=== PATIENT | female | born 1975 | race African-American/Black ===

== ENCOUNTER 2016-09-21 09:30 | Emergency (ER) | payer BC ==
--- NOTE | 2016-09-21 11:58 | ER Document Report ---
ED Neck/Back Problem - General Chief Complaint: Back Pain Stated Complaint: BACK PAIN Mode of Arrival: Ambulatory Information source: Patient Notes: 41-year-old female presents to the emergency department complaining of lower back pain. Patient reports does repetitive bending and twisting motions at work and cannot recall obvious injury however states while she was getting out of her car today felt a pulling sharp pain to mid lower back. Reports pain is worse with lateral movement and bending of trunk. Denies extremity weakness/ numbness/tingling, saddle numbness, incontinence, urinary retention, fever, dysuria or hematuria. TRAVEL OUTSIDE OF THE [place] IN LAST 30 DAYS: No - HPI Patient complains to provider of: Lower back Onset: This morning Onset: Gradual Quality of pain: Achy, Sharp Severity: Moderate Pain Level: 3 Context: Turning Recent injury: No Associated symptoms: Like prior neck/back pain, Lower back pain. denies: Abdominal pain, Chills, Constipation, Fever, Incontinence, Motor loss, Numbness/ tingling, Radiation to arm, Radiation to chest, Radiation to leg, Sensory loss, Sweaty, Unable to urinate Exacerbated by: Movement of trunk Relieved by: Upright position Similar symptoms previously: Yes Recently seen / treated by doctor: No - Related Data Allergies/Adverse Reactions: amoxicillin trihydrate [From Augmentin] Allergy (Verified 09/21/16 09:36) esomeprazole magnesium [From Nexium] Allergy (Verified 09/21/16 09:36) hydrocodone bitartrate [From Vicodin] Allergy (Verified 09/21/16 09:36) omeprazole [Omeprazole] Allergy (Verified 09/21/16 09:36) Potassium Clavulanate * [From Augmentin] Allergy (Verified 09/21/16 09:36) Past Medical History - General Information source: Patient - Social History Smoking Status: Never Smoker Chew tobacco use (# tins/day): No Frequency of alcohol use: Social Drug Abuse: None Lives with: Family Family History: Arthritis, CVA, DM, Hyperlipidemia, Hypertension, Malignancy, Thyroid Disfunction Patient has suicidal ideation: No Patient has homicidal ideation: No Pulmonary Medical History: Reports: Hx Bronchitis, Hx Pneumonia Endocrine Medical History: Reports: Hx Diabetes Mellitus Type 2 - boderline, Hx Hypothyroidism Renal/ Medical History: Reports: Hx Ovarian Cysts. Denies: Hx Peritoneal Dialysis GI Medical History: Reports: Hx Gastroesophageal Reflux Disease, Hx Endoscopy Musculoskeltal Medical History: Reports Hx Arthritis, Reports Hx Musculoskeletal Deformity, Reports Hx Musculoskeletal Trauma Psychiatric Medical History: Reports: Hx Depression, Hx Post Traumatic Stress Disorder Denies: Hx Attention Deficit Hyperactivity Disorder, Hx Bipolar Disorder, Hx Schizophrenia Past Surgical History: Reports: Hx Gynecologic Surgery - Laparoscopy for ovarian cysts, Hx Orthopedic Surgery - l knee arthroscopy, Hx Thyroid Surgery - Thyroidectomy 2004, Hx Tonsillectomy - 2009. Denies: Hx Abdominal Surgery, Hx Appendectomy, Hx Bowel Surgery, Hx Breast Surgery, Hx Cardiac Catheterization, Hx Cardiac Surgery, Hx Section, Hx Cholecystectomy, Hx Genitourinary Surgery, Hx Hysterectomy, Hx Kidney (Renal Surgery), Hx Mastectomy, Hx Neurologic Surgery, Hx Nose Surgery, Hx Open Heart Surgery, Hx Oral Surgery, Hx Pancreatic Surgery, Hx Pituitary Surgery, Hx Rectal Surgery, Hx Tubal Ligation, Hx Urinary Tract Surgery, Hx Vascular Surgery - Immunizations Immunizations up to date: Yes Hx Diphtheria, Pertussis, Tetanus Vaccination: Yes Review of Systems - Review of Systems Constitutional: No symptoms reported EENT: No symptoms reported Cardiovascular: No symptoms reported Respiratory: No symptoms reported Gastrointestinal: No symptoms reported Genitourinary: No symptoms reported Female Genitourinary: No symptoms reported Musculoskeletal: See HPI Skin: No symptoms reported Hematologic/Lymphatic: No symptoms reported Neurological/Psychological: No symptoms reported -: Yes All other systems reviewed and negative Physical Exam - Vital signs Vitals: Temp Pulse Resp BP Pulse Ox 98.3 F 66 21 H 135/85 H 99 09/21/16 09:34 09/21/16 09:34 09/21/16 09:34 09/21/16 09:34 09/21/16 09:34 Interpretation: Normal - General General appearance: Appears well, Alert In distress: None - HEENT Head: Normocephalic, Atraumatic Eyes: Normal Pupils: PERRL - Respiratory Respiratory status: No respiratory distress Chest status: Nontender Breath sounds: Normal Chest palpation: Normal - Cardiovascular Rhythm: Regular Heart sounds: Normal auscultation Murmur: No Pulses: Normal: Radial Normal capillary refill: Yes - Abdominal Inspection: Normal Distension: No distension Bowel sounds: Normal Tenderness: Nontender Organomegaly: No organomegaly - Back Back: Tender - Mild tenderness to palpation to bilateral paraspinal musculature L>R at lumbar level. Full range of motion without paresthesias or neurological deficits.. No: Normal, Nontender, Deformity/step-off, CVA tenderness, Vertebra tenderness, Scars, Scoliosis, Wounds, Other - Extremities General upper extremity: Normal inspection, Nontender, Normal color, Normal ROM , Normal strength, Normal temperature. No: Tender, Edema General lower extremity: Normal inspection, Nontender, Normal color, Normal ROM , Normal strength, Normal temperature, Normal weight bearing. No: Tender, Edema - Neurological Neuro grossly intact: Yes Cognition: Normal Orientation: AAOx4 Angie Coma Scale Eye Opening: Spontaneous [place] Coma Scale Verbal: Oriented [place] Coma Scale Motor: Obeys Commands [place] Coma Scale Total: 15 Speech: Normal Motor strength normal: LUE, RUE, LLE, RLE Sensory: Normal - Psychological Associated symptoms: Normal affect, Normal mood - Skin Skin Temperature: Warm Skin Moisture: Dry Skin Color: Normal Course - Re-evaluation Re-evalutation: 09/21/16 11:56 Patient hemodynamically stable, in no distress, afebrile.The patient presents with back pain without signs of spinal cord compression, cauda equina syndrome, infection, aneurysm, or other serious etiology. The patient is neurologically intact, independently and steadily ambulatory without paresthesias or neurological deficits. Given the extremely low risk of these diagnoses further testing and evaluation for these possibilities does not appear to be indicated at this time. Patient appears stable for discharge and agrees with home care, follow-up with PCP, ED return precautions. - Vital Signs Vital signs: Temp Pulse Resp BP Pulse Ox 98.3 F 80 16 130/78 H 99 09/21/16 09:34 09/21/16 12:04 09/21/16 12:04 09/21/16 12:04 09/21/16 12:04 Discharge - Discharge Clinical Impression: Low back pain Qualifiers: Chronicity: acute Back pain laterality: bilateral Sciatica presence: without sciatica Qualified Code(s): M54.5 - Low back pain Condition: Stable Disposition: HOME, SELF-CARE Additional Instructions: LOW BACK PAIN: Three out of every four people will have an episode of disabling back pain during their lifetime. Most commonly the pain is due to straining of the muscles and ligaments in the low back. Usual treatment includes: (1) Rest on a firm surface. Avoid lying on your stomach. (2) Ice pack the painful area. After a few days, gentle heat may be used intermittently to relax the area, or ice packs can be continued. (3) Medication may be needed -- muscle relaxers and antiinflammatory medicines are commonly used. (4) As the back improves, exercises are prescribed to strengthen the back and abdominal muscles. Your doctor will advise you on the proper care for your back at each stage in your recovery. You may be better in a few days -- or healing may take several weeks. If new symptoms of a "herniated disc" (radiation of pain, numbness, or tingling down the back of the leg or weakness in the leg) occur, you should be re-examined. Further testing may be necessary. Anti-Inflammatory Medication You have received a prescription for an antiinflammatory agent. This is an excellent, safe drug for pain control. In addition, it has potent antiinflammatory effects which are beneficial, especially in the treatment of injuries, arthritis, or tendonitis. It's best to take this medicine with food. Persons with ulcer disease or allergy to aspirin should notify their physician of this before taking this drug. Take the medication exactly as prescribed. Don't take additional doses unless instructed to do so by your doctor. If you develop wheezing, shortness of breath, hives, faintness, stomach pain, vomiting, or dark black stools, return for re-evaluation at once. MUSCLE RELAXERS: Muscle relaxing medications are usually prescribed for acute muscle spasm or injury to the neck and back. They are often combined with antiinflammatory pain medication for increased relief. You may stop the muscle relaxer when the pain and stiffness have improved. Start the medication again if spasms recur. Muscle relaxers may cause drowsiness, especially with the first dose. Do not operate machinery or drive while under the effects of the medication. Most muscle relaxers last up to 24 hours. Do not combine the medication with alcohol. ICE PACKS: Apply ice packs frequently against the painful area. Many different schedules are recommended, such as "20 minutes on, 20 minutes off" or "one hour ice, two hours rest." If you need to work, you may need to go longer between ice treatments. You should plan to have the area ice packed AT LEAST one fourth of the time. The ice should be applied over the wrap, tape, or splint, or over a layer of cloth -- not directly against the skin. Some ice bags have a built-in cloth and can be put directly on the skin. WARM PACKS: After approximately two days, apply gentle heat (such as a heating pad or hot water bottle) for about 20 to 30 minutes about every two hours -- at least four times daily. Warmth and elevation will help you make a more rapid recovery , and will ease the pain considerably. Do not use HOT heat, and never apply heat for longer than 30 minutes. The continuous heat can invisibly damage skin and muscles -- even when no burn is seen on the surface. Damaged muscles can make you MORE sore. FOLLOW-UP CARE: Follow-up with your primary care provider in 1-2 days. Return to the emergency department for any worsening symptoms or concerns. Prescriptions: Methocarbamol [Robaxin 500 mg Tablet] 500 mg PO Q8HP PRN #10 tablet PRN Reason: Naproxen [Naprosyn 375 Mg Tablet] 375 mg PO BIDP PRN #10 tablet PRN Reason: Forms: Elevated Blood Pressure, Return to Work
[2016-09-21 12:05] VITALS: BP 130/78
== END 2016-09-21 12:04 | disposition home or self-care (01) ==
LOC: ER 09:30
DX: M54.5 Low back pain (principal); M54.9 Dorsalgia, unspecified
CPT/HCPCS: 99283

== ENCOUNTER 2016-11-16 09:49 | Emergency (ER) | payer BC ==
[2016-11-16] MEDS ORDERED: IBUPROFEN 800 MG TABLET PO ONE (10:46)
--- NOTE | 2016-11-16 10:52 | ER Document Report ---
ED Headache - General Chief Complaint: Headache Stated Complaint: HEADACHE Time seen by provider: 10:47 Mode of Arrival: Ambulatory Information source: Patient Notes: 41-year-old female presents to ED for headache. She states she of headache started on Saturday it would come and go then yesterday it became constant and has been constant since. She states her sister brought her something over for her migraine yesterday which helped her to go to sleep and go through the night but this morning she woke up with a headache again. She is having nausea but no vomiting with this headache. Has a history of migraines but has never gone to her doctor and got in treatment for them. TRAVEL OUTSIDE OF THE [place] IN LAST 30 DAYS: No - HPI Patient complains to provider of: Headache Patient reports: Hx chronic headaches Onset: Yesterday Timing: Better Quality of pain: Achy, Dull Severity: Moderate Pain Level: 4 Associated symptoms: Other - nausea Exacerbated by: Light, Noise Similar symptoms previously: Yes Recently seen / treated by doctor: No - Related Data Allergies/Adverse Reactions: amoxicillin trihydrate [From Augmentin] Allergy (Verified 11/16/16 09:52) esomeprazole magnesium [From Nexium] Allergy (Verified 11/16/16 09:52) hydrocodone bitartrate [From Vicodin] Allergy (Verified 11/16/16 09:52) omeprazole [Omeprazole] Allergy (Verified 11/16/16 09:52) Potassium Clavulanate * [From Augmentin] Allergy (Verified 11/16/16 09:52) Past Medical History - General Information source: Patient - Social History Smoking Status: Never Smoker Chew tobacco use (# tins/day): No Frequency of alcohol use: None Drug Abuse: None Family History: Arthritis, CVA, DM, Hyperlipidemia, Hypertension, Malignancy, Thyroid Disfunction Patient has suicidal ideation: No Patient has homicidal ideation: No Pulmonary Medical History: Reports: Hx Bronchitis, Hx Pneumonia Endocrine Medical History: Reports: Hx Diabetes Mellitus Type 2 - boderline, Hx Hypothyroidism Renal/ Medical History: Reports: Hx Ovarian Cysts. Denies: Hx Peritoneal Dialysis GI Medical History: Reports: Hx Gastroesophageal Reflux Disease, Hx Endoscopy Musculoskeltal Medical History: Reports Hx Arthritis, Reports Hx Musculoskeletal Deformity, Reports Hx Musculoskeletal Trauma Psychiatric Medical History: Reports: Hx Depression, Hx Post Traumatic Stress Disorder Denies: Hx Attention Deficit Hyperactivity Disorder, Hx Bipolar Disorder, Hx Schizophrenia Past Surgical History: Reports: Hx Gynecologic Surgery - Laparoscopy for ovarian cysts, Hx Orthopedic Surgery - l knee arthroscopy, Hx Thyroid Surgery - Thyroidectomy 2004, Hx Tonsillectomy - 2009. Denies: Hx Abdominal Surgery, Hx Appendectomy, Hx Bowel Surgery, Hx Breast Surgery, Hx Cardiac Catheterization, Hx Cardiac Surgery, Hx Section, Hx Cholecystectomy, Hx Genitourinary Surgery, Hx Hysterectomy, Hx Kidney (Renal Surgery), Hx Mastectomy, Hx Neurologic Surgery, Hx Nose Surgery, Hx Open Heart Surgery, Hx Oral Surgery, Hx Pancreatic Surgery, Hx Pituitary Surgery, Hx Rectal Surgery, Hx Tubal Ligation, Hx Urinary Tract Surgery, Hx Vascular Surgery - Immunizations Immunizations up to date: Yes Hx Diphtheria, Pertussis, Tetanus Vaccination: Yes Review of Systems - Review of Systems Constitutional: No symptoms reported EENT: No symptoms reported Cardiovascular: No symptoms reported Respiratory: No symptoms reported Gastrointestinal: Nausea Genitourinary: No symptoms reported Female Genitourinary: No symptoms reported Musculoskeletal: No symptoms reported Skin: No symptoms reported Hematologic/Lymphatic: No symptoms reported Neurological/Psychological: Headaches Physical Exam - Vital signs Vitals: Temp Pulse Resp BP Pulse Ox 98.7 F 53 L 18 117/89 H 97 11/16/16 09:53 11/16/16 09:53 11/16/16 09:53 11/16/16 09:53 11/16/16 09:53 Interpretation: Normal Notes: Temperature 98.7 pulse 53 respirations 18 regular unlabored. O2 sats 97% and blood pressure is 117/89 - General General appearance: Appears well, Alert - HEENT Head: Normocephalic, Atraumatic Eyes: Normal Pupils: PERRL - Respiratory Respiratory status: No respiratory distress Chest status: Nontender Breath sounds: Normal Chest palpation: Normal - Cardiovascular Rhythm: Regular Heart sounds: Normal auscultation Murmur: No - Abdominal Inspection: Normal Distension: No distension Bowel sounds: Normal Tenderness: Nontender Organomegaly: No organomegaly - Back Back: Normal, Nontender - Extremities General upper extremity: Normal inspection, Nontender, Normal color, Normal ROM , Normal temperature General lower extremity: Normal inspection, Nontender, Normal color, Normal ROM , Normal temperature, Normal weight bearing. No: Liudmila's sign - Neurological Neuro grossly intact: Yes Cognition: Normal Orientation: AAOx4 [place] Coma Scale Eye Opening: Spontaneous Angie Coma Scale Verbal: Oriented Angie Coma Scale Motor: Obeys Commands [place] Coma Scale Total: 15 Speech: Normal Cranial nerves: Normal Cerebellar coordination: Normal Motor strength normal: LUE, RUE, LLE, RLE Additional motor exam normals: Equal manager commercial Babinski reflex: Normal (flexor plantar) Sensory: Normal - Psychological Associated symptoms: Normal affect, Normal mood - Skin Skin Temperature: Warm Skin Moisture: Dry Skin Color: Normal Course - Re-evaluation Re-evalutation: 11/16/16 11:56 Patient states she did not have a ride home would prefer to get the ibuprofen here and get a prescription for Compazine and she'll take Benadryl at home. Prescription for Compazine written for patient ibuprofen given and patient discharged home. Patient encouraged to follow up with your [facility] provider and get a prescription for some migraine maintenance and when necessary medicine for breakthrough pain. - Vital Signs Vital signs: Temp Pulse Resp BP Pulse Ox 98.6 F 53 L 16 124/78 100 11/16/16 10:57 11/16/16 10:57 11/16/16 10:57 11/16/16 10:57 11/16/16 10:57 Discharge - Discharge Clinical Impression: Migraine headache Qualifiers: Migraine type: unspecified Status migrainosus presence: without status migrainosus Intractability: not intractable Qualified Code(s): G43.909 - Migraine, unspecified, not intractable, without status migrainosus Condition: Stable Disposition: HOME, SELF-CARE Additional Instructions: HEADACHE: The physician does not feel that the headache you are experiencing has a serious underlying cause. Most headaches are due to emotional stress, with resultant muscle tension (tension headache). Occasionally, headaches are secondary to changes in the blood vessels of the scalp (vascular headache and migraine headache). Sometimes, a headache is the first symptom of another developing illness, such as a viral infection. You have no evidence of stroke, bleeding, meningitis, or other serious cause of your headache. The treatment of headaches varies with the severity and cause of the pain. Not all headaches need pain shots. In fact, there is evidence that using narcotics for headaches may make them worse in the long run. The physician will determine the therapy that's in your best interest. If you develop a fever, if the headache is different from any you've previously experienced, or if the headache progressively worsens, then call your physician at once or go to the emergency room. USE OF DIPHENHYDRAMINE: Diphenhydramine (Benadryl) is an antihistamine and has been recommended to help treat your headache and to prevent side effects of other medications used to treat headaches. The medication can be repeated four times daily. Age Elixir (12.5 mg/tsp) 25 mg pill adult 1-2 tabs Antihistamines may cause drowsiness, especially with the first dose. Do not operate machinery or drive while under the effects of the medication. Do not combine the medication with alcohol, or with any other medication without talking to your doctor. COMPAZINE FOR HEADACHE: You have received therapy for headaches, using Compazine. This treatment is dramatically successful in relieving the headache in about 50 percent of cases. When it works, it provides a rapid method of eliminating the headache without resorting to narcotics (and the problems associated with them). Most patients still feel fully alert after the Compazine, but others may be slightly drowsy. It's best not to drive or work with machinery for six to eight hours. Do not take alcohol or other medication unless you discuss it with the doctor. If you develop tightness and spasms in your muscles, especially the neck and tongue, you should return. This is a side effect which can be treated. Ibuprofen Ibuprofen is an excellent, safe drug for pain control. In addition, it has potent antiinflammatory effects which are beneficial, especially in the treatment of injuries, arthritis, or tendonitis. It's best to take ibuprofen with food. Persons with ulcer disease or allergy to aspirin should notify their physician of this before taking ibuprofen. Take the medication exactly as prescribed. Don't take additional doses unless instructed to do so by your doctor. If you develop wheezing, shortness of breath, hives, faintness, stomach pain, vomiting, or dark black stools, return for re-evaluation at once. FOLLOW-UP CARE: If you have been referred to a physician for follow-up care, call the physician s office for an appointment as you were instructed or within the next two days. If you experience worsening or a significant change in your symptoms, notify the physician immediately or return to the Emergency Department at any time for re-evaluation. Please follow-up with your [facility] doctor and get treatment for your migraine headaches. There is treatments that you can take to prevent headaches and there is also treatments that she can take when you have. Please complete the patient's satisfaction survey if you get one and return. If you do not receive a survey you can go to [facility] [email or web address] and your comments about your very good care. Thank you very much. It was a pleasure be in your medical provider today. Prescriptions: Prochlorperazine Maleate [Compazine 10 mg Tablet] 10 mg PO Q6HP PRN #10 tablet PRN Reason: Forms: Return to Work
[2016-11-16 11:29] VITALS: BP 124/78
== END 2016-11-16 11:00 | disposition home or self-care (01) ==
LOC: ER 09:49
DX: G43.909 Migraine, unspecified, not intractable, without status migrainosus (principal); R11.0 Nausea; R73.03 Prediabetes; E03.9 Hypothyroidism, unspecified; K21.9 Gastro-esophageal reflux disease without esophagitis; Z88.3 Allergy status to other anti-infective agents
CPT/HCPCS: 99283

== ENCOUNTER 2016-11-17 16:01 | Emergency (ER) | payer BC ==
--- NOTE | 2016-11-17 18:22 | ER Document Report ---
ED Medical Screen (RME) - General Chief Complaint: Abdominal Pain Stated Complaint: STOMACH PAIN Notes: Patient says that she developed severe stomach pains while at work today. Patient says she started her menstrual cycle last night, but it was not unusual in any way. The pain at work was so severe that she was crying from the pain. She also was laying on the bathroom floor at work because of the pain. The pain was sharp and went around from the lower midline suprapubic region to the sides of her abdomen bilaterally. When the patient got here, she went to the bathroom and passed a large clot vaginally and ever since then, her pain is gone. Patient has had some nausea but not vomiting. No change in bowel habits or blood in her bowel movements. No UTI symptoms. No fevers. Surgery for right ovarian cyst and also surgery on the left for a possible cyst. At this time, patient looks very well. TRAVEL OUTSIDE OF THE [place] IN LAST 30 DAYS: No - Related Data Allergies/Adverse Reactions: amoxicillin trihydrate [From Augmentin] Allergy (Verified 11/17/16 16:45) esomeprazole magnesium [From Nexium] Allergy (Verified 11/17/16 16:45) hydrocodone bitartrate [From Vicodin] Allergy (Verified 11/17/16 16:45) omeprazole [Omeprazole] Allergy (Verified 11/17/16 16:45) Potassium Clavulanate * [From Augmentin] Allergy (Verified 11/17/16 16:45) Past Medical History Pulmonary Medical History: Reports: Hx Bronchitis, Hx Pneumonia Endocrine Medical History: Reports: Hx Diabetes Mellitus Type 2 - boderline, Hx Hypothyroidism Renal/ Medical History: Reports: Hx Ovarian Cysts. Denies: Hx Peritoneal Dialysis GI Medical History: Reports: Hx Gastroesophageal Reflux Disease, Hx Endoscopy Musculoskeltal Medical History: Reports Hx Arthritis, Reports Hx Musculoskeletal Deformity, Reports Hx Musculoskeletal Trauma Psychiatric Medical History: Reports: Hx Depression, Hx Post Traumatic Stress Disorder Denies: Hx Attention Deficit Hyperactivity Disorder, Hx Bipolar Disorder, Hx Schizophrenia Past Surgical History: Reports: Hx Gynecologic Surgery - Laparoscopy for ovarian cysts, Hx Orthopedic Surgery - l knee arthroscopy, Hx Thyroid Surgery - Thyroidectomy 2004, Hx Tonsillectomy - 2009. Denies: Hx Abdominal Surgery, Hx Appendectomy, Hx Bowel Surgery, Hx Breast Surgery, Hx Cardiac Catheterization, Hx Cardiac Surgery, Hx Section, Hx Cholecystectomy, Hx Genitourinary Surgery, Hx Hysterectomy, Hx Kidney (Renal Surgery), Hx Mastectomy, Hx Neurologic Surgery, Hx Nose Surgery, Hx Open Heart Surgery, Hx Oral Surgery, Hx Pancreatic Surgery, Hx Pituitary Surgery, Hx Rectal Surgery, Hx Tubal Ligation, Hx Urinary Tract Surgery, Hx Vascular Surgery - Immunizations Immunizations up to date: Yes Hx Diphtheria, Pertussis, Tetanus Vaccination: Yes Physical Exam - Vital signs Vitals: Temp Pulse Resp BP Pulse Ox 98.6 F 57 L 16 122/91 H 99 11/17/16 16:47 11/17/16 16:47 11/17/16 16:47 11/17/16 16:47 11/17/16 16:47 Course - Vital Signs Vital signs: Temp Pulse Resp BP Pulse Ox 98.6 F 57 L 16 122/91 H 99 11/17/16 16:47 11/17/16 16:47 11/17/16 16:47 11/17/16 16:47 11/17/16 16:47
[2016-11-17 18:52] LABS: ABSOLUTE LYMPHOCYTES (AUTO) 1.2 10^3/uL (0.5-4.7); ABSOLUTE MONOCYTES (AUTO) 0.4 10^3/uL (0.1-1.4); ABSOLUTE NEUT (AUTO) 4.8 10^3/uL (1.7-8.2); APPEARANCE,URINE SLIGHTLY-CLOUDY; BASOPHILS % (AUTO) 0.6 % (0-2); BILIRUBIN,URINE NEGATIVE (NEGATIVE); EOSINOPHILS % (AUTO) 0.2 % (0-6); GLUCOSE, URINE NEGATIVE (NEGATIVE); HEMOGLOBIN 12.1 g/dL (12.0-15.5); HGB HCT DIFFERENCE -1.7; KETONES,URINE NEGATIVE (NEGATIVE); LEUKOCYTE ESTERASE,URINE TRACE (NEGATIVE); LYMPHOCYTES % (AUTO) 18.8 % (13-45); MEAN CORPUSCULAR HEMOGLOBIN 25.1 pg (27.0-33.4); MEAN CORPUSCULAR HGB CONC 31.9 g/dL (32.0-36.0); MEAN CORPUSCULAR VOLUME 79 fl (80-97); MONOCYTES % (AUTO) 6.3 % (3-13); NITRITE,URINE NEGATIVE (NEGATIVE); PROTEIN,URINE 100 mg/dL (NEGATIVE); RED BLOOD COUNT 4.83 10^6/uL (3.72-5.28); SEGMENTED NEUTROPHILS % (AUTO) 74.1 % (42-78); URINE SPECIFIC GRAVITY 1.024; UROBILINOGEN,URINE NEGATIVE mg/dL (<2.0); WHITE BLOOD COUNT 6.5 10^3/uL (4.0-10.5)
[2016-11-17 19:10] LABS: ALANINE AMINOTRANSFERASE 22 U/L (9-52); ALBUMIN 4.2 g/dL (3.5-5.0); ALKALINE PHOSPHATASE 77 U/L (38-126); ANION GAP 15 (5-19); ASPARTATE AMINO TRANSFERASE 18 U/L (14-36); BILIRUBIN,DIRECT 0.1 mg/dL (0.0-0.4); BILIRUBIN,TOTAL 0.3 mg/dL (0.2-1.3); BLOOD UREA NITROGEN 16 mg/dL (7-20); CALCIUM 9.5 mg/dL (8.4-10.2); CARBON DIOXIDE 22 mmol/L (22-30); CHLORIDE 105 mmol/L (98-107); CREATININE RESULT 0.81 mg/dL (0.52-1.25); GLUCOSE 123 mg/dL (75-110); LIPASE 72.5 U/L (23-300); POTASSIUM 4.4 mmol/L (3.6-5.0); SODIUM 142.1 mmol/L (137-145); TOTAL PROTEIN 7.4 g/dL (6.3-8.2)
--- NOTE | 2016-11-17 19:39 | ER Document Report ---
HPI - HPI Patient complains to provider of: pelvic pain Onset: This afternoon Onset/Duration: Sudden, Gone Quality of pain: Sharp Pain Level: Denies Context: Patient states that she started her period yesterday and then passed a large clot this afternoon. Prior to passing clots she had there a sharp lower pelvic pain. Patient states that after passing the clot her pain resolved. Patient complains of some nausea but denies any vomiting or diarrhea. Patient denies any concern about sexually transmitted infection. Associated Symptoms: Other Exacerbated by: Denies Relieved by: Denies Similar symptoms previously: No Recently seen / treated by doctor: No - ROS ROS below otherwise negative: Yes Systems Reviewed and Negative: Yes All other systems reviewed and negative - CONSTITUTIONAL Constitutional: DENIES: Fever - NEURO Neurology: DENIES: Headache, Weakness - GASTROINTESTINAL Gastrointestinal: REPORTS: Abdominal Pain. 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 Denies: Hx Peritoneal Dialysis GI Medical History: Reports: Hx Gastroesophageal Reflux Disease, Hx Endoscopy Musculoskeltal Medical History: Reports Hx Arthritis, Reports Hx Musculoskeletal Deformity, Reports Hx Musculoskeletal Trauma Psychiatric Medical History: Reports: Hx Depression, Hx Post Traumatic Stress Disorder Denies: Hx Attention Deficit Hyperactivity Disorder, Hx Bipolar Disorder, Hx Schizophrenia Past Surgical History: Reports: Hx Gynecologic Surgery - Laparoscopy for ovarian cysts, Hx Orthopedic Surgery - l knee arthroscopy, Hx Thyroid Surgery - Thyroidectomy 2004, Hx Tonsillectomy - 2009 - Immunizations Immunizations up to date: Yes Hx Diphtheria, Pertussis, Tetanus Vaccination: Yes Vertical Provider Document - CONSTITUTIONAL Agree With Documented VS: Yes Exam Limitations: No Limitations General Appearance: WD/WN, No Apparent Distress - INFECTION CONTROL TRAVEL OUTSIDE OF THE [place] IN LAST 30 DAYS: No - HEENT HEENT: Atraumatic, Normocephalic - NECK Neck: Normal Inspection, Supple - RESPIRATORY Respiratory: Breath Sounds Normal, No Respiratory Distress, Chest Non-Tender O2 Sat by Pulse Oximetry: 99 - CARDIOVASCULAR Cardiovascular: Regular Rate, Regular Rhythm, No Murmur - GI/ABDOMEN Gastrointestinal: Abdomen Soft, Abdomen Non-Tender, No Organomegaly - BACK Back: Normal Inspection. negative: CVA Tenderness-Right, CVA Tenderness-Left - MUSCULOSKELETAL/EXTREMETIES Musculoskeletal/Extremeties: MAEW, FROM, Non-Tender - NEURO Level of Consciousness: Awake, Alert, Appropriate Motor/Sensory: No Motor Deficit - DERM Integumentary: Warm, Dry, No Rash Course - Re-evaluation Re-evalutation: 11/17/16 19:37 Offered pelvic examination with STD testing, patient declined stating she just had this test performed last week and has no concerns about STI 11/17/16 19:38 Patient states that she only came she went to make sure that she wasn't . - Vital Signs Vital signs: Temp Pulse Resp BP Pulse Ox 98.6 F 57 L 16 122/91 H 99 11/17/16 16:47 11/17/16 16:47 11/17/16 16:47 11/17/16 16:47 11/17/16 16:47 - Laboratory Result Diagrams: 11/17/16 18:24 11/17/16 18:24 Laboratory results interpreted by me: 11/17/16 11/17/16 11/17/16 18:24 18:24 18:24 MCV 79 L MCH 25.1 L MCHC 31.9 L RDW 16.0 H Glucose 123 H Urine Protein 100 H Urine Blood LARGE H Ur Leukocyte Esterase TRACE H 11/17/16 19:38 Labs- Entire Visit 11/17/16 11/17/16 11/17/16 18:24 18:24 18:24 WBC 6.5 RBC 4.83 Hgb 12.1 Hct 38.0 MCV 79 L MCH 25.1 L MCHC 31.9 L RDW 16.0 H Plt Count 240 Seg Neutrophils % 74.1 Lymphocytes % 18.8 Monocytes % 6.3 Eosinophils % 0.2 Basophils % 0.6 Absolute Neutrophils 4.8 Absolute Lymphocytes 1.2 Absolute Monocytes 0.4 Absolute Eosinophils 0.0 Absolute Basophils 0.0 Sodium 142.1 Potassium 4.4 Chloride 105 Carbon Dioxide 22 Anion Gap 15 BUN 16 Creatinine 0.81 Est GFR ( Amer) > 60 Est GFR (Non-Af Amer) > 60 Glucose 123 H Calcium 9.5 Total Bilirubin 0.3 Direct Bilirubin 0.1 Indirect Bilirubin Not Reportable Neonat Total Bilirubin Not Reportable AST 18 ALT 22 Alkaline Phosphatase 77 Total Protein 7.4 Albumin 4.2 Lipase 72.5 Serum HCG, Qual NEGATIVE Urine Color Urine Appearance Urine pH Ur Specific [place] Urine Protein Urine Glucose (UA) Urine Ketones Urine Blood Urine Nitrite Urine Bilirubin Urine Urobilinogen Ur Leukocyte Esterase Urine WBC (Auto) Urine RBC (Auto) Squamous Epi Cells Auto Urine Mucus (Auto) Urine Ascorbic Acid 11/17/16 18:24 WBC RBC Hgb Hct MCV MCH MCHC RDW Plt Count Seg Neutrophils % Lymphocytes % Monocytes % Eosinophils % Basophils % Absolute Neutrophils Absolute Lymphocytes Absolute Monocytes Absolute Eosinophils Absolute Basophils Sodium Potassium Chloride Carbon Dioxide Anion Gap BUN Creatinine Est GFR ( Amer) Est GFR (Non-Af Amer) Glucose Calcium Total Bilirubin Direct Bilirubin Indirect Bilirubin Neonat Total Bilirubin AST ALT Alkaline Phosphatase Total Protein Albumin Lipase Serum HCG, Qual Urine Color YELLOW Urine Appearance SLIGHTLY-CLOUDY Urine pH 6.0 Ur Specific [place] 1.024 Urine Protein 100 H Urine Glucose (UA) NEGATIVE Urine Ketones NEGATIVE Urine Blood LARGE H Urine Nitrite NEGATIVE Urine Bilirubin NEGATIVE Urine Urobilinogen NEGATIVE Ur Leukocyte Esterase TRACE H Urine WBC (Auto) 12 Urine RBC (Auto) >182 Squamous Epi Cells Auto 1 Urine Mucus (Auto) RARE Urine Ascorbic Acid NEGATIVE Discharge - Discharge Clinical Impression: Dysmenorrhea Condition: Stable Disposition: HOME, SELF-CARE Instructions: Dysmenorrhea ([facility]), Anti-Inflammatory Medication ([facility]) Additional Instructions: Return immediately for any new or worsening symptoms Followup with your primary care provider, call tomorrow to make a followup appointment Follow-up with your foam caster for any continued problems Forms: Return to Work Referrals: [facility] [Provider Group] - Follow up as needed
[2016-11-17 20:36] VITALS: BP 121/81
== END 2016-11-17 20:14 | disposition home or self-care (01) ==
LOC: ER 16:01
DX: N94.6 Dysmenorrhea, unspecified (principal); R10.2 Pelvic and perineal pain
CPT/HCPCS: 36415; 80053; 81001; 83690; 84703; 85025; 99284

== ENCOUNTER 2017-02-05 19:24 | Emergency (ER) | payer BC ==
[2017-02-05 20:15] VITALS: BP 117/85
[2017-02-05 21:58] LABS: APPEARANCE,URINE CLEAR; BILIRUBIN,URINE NEGATIVE (NEGATIVE); GLUCOSE, URINE NEGATIVE (NEGATIVE); KETONES,URINE NEGATIVE (NEGATIVE); LEUKOCYTE ESTERASE,URINE NEGATIVE (NEGATIVE); NITRITE,URINE NEGATIVE (NEGATIVE); PROTEIN,URINE NEGATIVE (NEGATIVE); URINE SPECIFIC GRAVITY 1.021
--- NOTE | 2017-02-05 22:26 | ER Document Report ---
ED GI/ - General Mode of Arrival: Ambulatory Information source: Patient TRAVEL OUTSIDE OF THE [place] IN LAST 30 DAYS: No - General Chief Complaint: Urinary Frequency Stated Complaint: PAIN WHILE URINATING Notes: Patient is a 41-year-old female who presents to the emergency department today with complaints of "tingling in her vagina". Patient states she feels like she "has a UTI or a yeast infection". Patient states she has been diagnosed with UTIs in the past but had never had symptoms. Patient states she was diagnosed with herpes "years ago" but has never had an outbreak. Patient denies any dysuria, itch, or vaginal bleeding. (CORNELIA ZEPEDA) - Related Data Allergies/Adverse Reactions: amoxicillin trihydrate [From Augmentin] Allergy (Verified 02/05/17 20:13) esomeprazole magnesium [From Nexium] Allergy (Verified 02/05/17 20:13) hydrocodone bitartrate [From Vicodin] Allergy (Verified 02/05/17 20:13) omeprazole [Omeprazole] Allergy (Verified 02/05/17 20:13) Potassium Clavulanate * [From Augmentin] Allergy (Verified 02/05/17 20:13) Past Medical History - General Information source: Patient - Social History Smoking Status: Never Smoker Cigarette use (# per day): No Frequency of alcohol use: None Drug Abuse: None Lives with: Family Family History: Reviewed & Not Pertinent, Arthritis, CVA, DM, Hyperlipidemia, Hypertension, Malignancy, Thyroid Disfunction Patient has suicidal ideation: No Patient has homicidal ideation: No Pulmonary Medical History: Reports: Hx Bronchitis, Hx Pneumonia Endocrine Medical History: Reports: Hx Diabetes Mellitus Type 2 - boderline, Hx Hypothyroidism Renal/ Medical History: Reports: Hx Ovarian Cysts GI Medical History: Reports: Hx Gastroesophageal Reflux Disease, Hx Endoscopy Musculoskeltal Medical History: Reports Hx Arthritis, Reports Hx Musculoskeletal Deformity, Reports Hx Musculoskeletal Trauma Psychiatric Medical History: Reports: Hx Depression, Hx Post Traumatic Stress Disorder Past Surgical History: Reports: Hx Gynecologic Surgery - Laparoscopy for ovarian cysts, Hx Orthopedic Surgery - l knee arthroscopy, Hx Thyroid Surgery - Thyroidectomy 2004, Hx Tonsillectomy - 2009 - Immunizations Immunizations up to date: Yes Hx Diphtheria, Pertussis, Tetanus Vaccination: Yes Review of Systems - Review of Systems Constitutional: No symptoms reported EENT: No symptoms reported Cardiovascular: No symptoms reported Respiratory: No symptoms reported Gastrointestinal: No symptoms reported Genitourinary: Other - vaginal tingling. denies: Dysuria Female Genitourinary: denies: Vaginal bleeding Musculoskeletal: No symptoms reported Skin: No symptoms reported Hematologic/Lymphatic: No symptoms reported Neurological/Psychological: No symptoms reported -: Yes All other systems reviewed and negative Physical Exam - Vital signs Vitals: Temp Pulse BP Pulse Ox 98.5 F 79 117/85 99 02/05/17 20:13 02/05/17 20:13 02/05/17 20:13 02/05/17 20:13 - Notes Notes: Physical Exam: General: Alert, appears well. HEENT: Normocephalic. Atraumatic. PERRL. Extraocular movements intact. Oropharynx clear. Neck: Supple. Non-tender. Respiratory: No respiratory distress. Clear and equal breath sounds bilaterally. Cardiovascular: Regular rate and rhythm. Abdominal: Normal Inspection. Non-tender. No distension. Normal Bowel Sounds. Female Genitourinary: No lesions. Back: Non-tender. No deformity or step off. Extremities: Moves all four extremities. Upper extremities: Normal inspection. Normal ROM. Lower extremities: Normal inspection. No edema. Normal ROM. Neurological: Normal cognition. AAOx4. Normal speech. Psychological: Normal affect. Normal Mood. Skin: Warm. Dry. Normal color. (CORNELIA ZEPEDA) Course - Re-evaluation Re-evalutation: Patient with no findings on vaginal exam. Stable for discharge. Follow-up with FISH FLIPPER as needed. Urine within normal limits. Stable for discharge. ( DEX MURPHY) - Vital Signs Vital signs: Temp Pulse Resp BP Pulse Ox 98.5 F 79 117/85 99 02/05/17 20:13 02/05/17 20:13 02/05/17 20:13 02/05/17 20:13 - Laboratory Laboratory results interpreted by me: 02/05/17 20:30 Urine Urobilinogen 4.0 H Discharge - Discharge Clinical Impression: Normal vaginal exam Condition: Stable Disposition: HOME, SELF-CARE Additional Instructions: Please follow-up with your FISH FLIPPER as needed. [place]qu[place] Attestation: 02/06/17 00:24 I personally performed the services described in the documentation, reviewed and edited the documentation which was dictated to the scribe in my presence, and it accurately records my words and actions. (DEX MURPHY) Scribe Documentation - Scribe Written by Tiffany:: Tiffany Jama, 02/05/2017 2322 acting as scribe for :: Jenni
== END 2017-02-05 22:55 | disposition home or self-care (01) ==
LOC: ER 19:24
DX: Z71.1 Person with feared health complaint in whom no diagnosis is made (principal); R35.0 Frequency of micturition; R30.0 Dysuria; Z87.440 Personal history of urinary (tract) infections; Z88.0 Allergy status to penicillin; Z88.6 Allergy status to analgesic agent; R73.03 Prediabetes
CPT/HCPCS: 81001; 81025; 99283

== ENCOUNTER 2017-08-26 16:07 | Emergency (ER) | payer BC, OTHER ==
[2017-08-26] MEDS ORDERED: KETOROLAC TROMETHAMINE INJ/PF 30 MG/1 ML SDV IM ONE (17:58)
--- NOTE | 2017-08-26 18:04 | ER Document Report ---
HPI - HPI Pain Level: 5 Notes: Patient is a 42-year-old female with a history of chronic bilateral knee pain who presents to the ED complaining of nasal congestion/discharge, sinus pressure , postnasal drip 2-1/2 weeks. Patient states that she did develop a dry nonproductive cough over the last few days. Patient states that she has had sinus infections in the past before and needed an antibiotic. Otherwise patient is eating and drinking without any difficulties. She is urinating normally and having normal bowel movements. Patient states that she is allergic to Augmentin, but that only caused a yeast infection in the past. She has never had any rash or angioedema associated with the Augmentin/penicillin family. Patient states that she does continue to have chronic knee pain bilaterally with no acute changes. No other concerns or complaints at this time. Denies any recent injury. Denies any headache, fever, neck pain, sore throat, chest pain, palpitations, syncope, shortness of breath, wheeze, dyspnea , abdominal pain, nausea/vomiting/diarrhea, urinary retention, dysuria, hematuria, loss of control of bowel or bladder, numbness/tingling, saddle anesthesia, muscle paralysis/weakness, or rash. - ROS Systems Reviewed and Negative: Yes All other systems reviewed and negative - REPRODUCTIVE Reproductive: DENIES: : Past Medical History - Social History Smoking Status: Never Smoker Family History: Arthritis, Malignancy, CVA, DM, Hyperlipidemia, Hypertension, Reviewed & Not Pertinent, Thyroid Disfunction Pulmonary Medical History: Reports: Hx Bronchitis, Hx Pneumonia Endocrine Medical History: Reports: Hx Diabetes Mellitus Type 2 - boderline, Hx Hypothyroidism Renal/ Medical History: Reports: Hx Ovarian Cysts. Denies: Hx Peritoneal Dialysis GI Medical History: Reports: Hx Gastroesophageal Reflux Disease, Hx Endoscopy Musculoskeltal Medical History: Reports Hx Arthritis, Reports Hx Musculoskeletal Deformity, Reports Hx Musculoskeletal Trauma Psychiatric Medical History: Reports: Hx Depression, Hx Post Traumatic Stress Disorder Denies: Hx Attention Deficit Hyperactivity Disorder, Hx Bipolar Disorder, Hx Schizophrenia Past Surgical History: Reports: Hx Gynecologic Surgery - Laparoscopy for ovarian cysts, Hx Orthopedic Surgery, Hx Thyroid Surgery, Hx Tonsillectomy, Hx Tubal Ligation. Denies: Hx Abdominal Surgery, Hx Appendectomy, Hx Bowel Surgery , Hx Breast Surgery, Hx Cardiac Catheterization, Hx Cardiac Surgery, Hx Section, Hx Cholecystectomy, Hx Genitourinary Surgery, Hx Hysterectomy , Hx Kidney (Renal Surgery), Hx Mastectomy, Hx Neurologic Surgery, Hx Nose Surgery, Hx Open Heart Surgery, Hx Oral Surgery, Hx Pancreatic Surgery, Hx Pituitary Surgery, Hx Rectal Surgery, Hx Urinary Tract Surgery, Hx Vascular Surgery - Immunizations Immunizations up to date: Yes Hx Diphtheria, Pertussis, Tetanus Vaccination: Yes Vertical Provider Document - CONSTITUTIONAL Agree With Documented VS: Yes Notes: PHYSICAL EXAMINATION: GENERAL: Well-appearing, well-nourished and in no acute distress. A&Ox4 HEAD: Atraumatic, normocephalic. EYES: Pupils equal round and reactive to light, extraocular movements intact, sclera anicteric, conjunctiva are normal. ENT: EAC clear b/l. TM's intact b/l without erythema, fluid, or perforation. Nares patent and with yellow discharge. oropharynx mild erythema without exudates. 1+ tonsilar hypertrophy without erythema or exudate. No palatine shift. Uvula midline. No tongue protrusion. No drooling, hoarseness, or airway compromise. Moist mucous membranes. + sinus tenderness and + illumination test b/l maxillary. NECK: Normal range of motion, supple without lymphadenopathy. No rigidity/ meningismus. LUNGS: Breath sounds clear to auscultation bilaterally and equal. No wheezes rales or rhonchi. HEART: Regular rate and rhythm without murmurs, rubs, gallops. ABDOMEN: Soft, nontender, nondistended abdomen. No guarding, no rebound. No masses appreciated. Normal bowel sounds present. No CVA tenderness bilaterally. MS: FROM to knee b/l. Strength 5+/5. Non-tender. Trace pitting edema b/l. N/ V intact distal. Ligamentous stable. Chris neg b/l. NEUROLOGICAL: Normal speech, normal gait. Normal sensory, motor exams PSYCH: Normal mood, normal affect. SKIN: Warm, Dry, normal turgor, no rashes or lesions noted. - INFECTION CONTROL TRAVEL OUTSIDE OF THE [place] IN LAST 30 DAYS: No - RESPIRATORY O2 Sat by Pulse Oximetry: 98 Course - Re-evaluation Re-evalutation: 08/26/17 18:02 Patient is an afebrile, well-hydrated, 42-year-old female who presents to the ED with acute sinusitis and chronic bilateral knee pain, suspect arthritic changes. Vitals are stable. PE is otherwise unremarkable. No labs or imaging warranted at this time based on H&P. With the positive sinus tenderness, positive illumination test, and sinus symptoms for 2-1/2 weeks, I will cover her with Omnicef. I will also send her home with one Diflucan tablet as precautionary. Toradol given IM today for her knee pain. Recommend conservative measures for symptoms. Low suspicion for any meningitis, sepsis, peritonsillar/pharyngeal abscess, respiratory compromise, Christiano's, septic joint , fracture/dislocation, or other emergent systemic condition at this time. Patient is aware this condition can change from initial presentation and she needs to monitor symptoms closely. Conservative measures otherwise for symptoms. Recheck with your PCM in 3-5 days. Return to the ED with any worsening/concerning symptoms otherwise as reviewed in discharge. Patient is in agreement. - Vital Signs Vital signs: Temp Pulse Resp BP Pulse Ox 98.7 F 66 17 133/97 H 98 08/26/17 16:12 08/26/17 16:12 08/26/17 16:12 08/26/17 16:12 08/26/17 16:12 Discharge - Discharge Clinical Impression: Chronic pain of both knees Acute sinusitis Qualifiers: Sinusitis location: maxillary Recurrence: non-recurrent Qualified Code(s): J01.00 - Acute maxillary sinusitis, unspecified Condition: Stable Disposition: HOME, SELF-CARE Instructions: Sinusitis ([facility]) Additional Instructions: Maintain adequate fluid intake Take meds as directed tylenol/ibuprofen as needed over the counter cold medication as needed for symptoms Humidified air may help Rest, ice, compression, elevation F/u: with your PCM in 3-5 days for a recheck Consider consult with Orthopedics/Physical therapy Return to the ED with any fever, worsening pain, chest pain, palpitations, syncope, worsening ALVES, neck pain/stiffness, shortness of breath, wheezing, drooling, trouble swallowing/breathing, abdominal pain, n/v/d, rash, swelling- redness-warmth of knee joint, or worsening/concerning symptoms otherwise. Prescriptions: Cefdinir [Omnicef 300 mg Capsule] 1 cap PO BID #20 capsule Fluconazole [Diflucan] 150 mg PO ONCE PRN #1 tablet PRN Reason: Forms: Elevated Blood Pressure Referrals: [facility] [Provider Group] - Follow up as needed
[2017-08-26 18:44] VITALS: BP 154/99
== END 2017-08-26 18:44 | disposition home or self-care (01) ==
LOC: ER 16:07
DX: J01.00 Acute maxillary sinusitis, unspecified (principal); M25.561 Pain in right knee; M25.562 Pain in left knee; G89.29 Other chronic pain; R09.81 Nasal congestion; R09.89 Other specified symptoms and signs involving the circulatory and respiratory systems; R09.82 Postnasal drip; R05 Cough
CPT/HCPCS: 99283; 96372; J1885

== ENCOUNTER 2017-11-17 11:57 | Emergency (ER) | payer OTHER ==
--- NOTE | 2017-11-17 14:13 | ER Document Report ---
ED Respiratory Problem - General Chief Complaint: Knee Pain Stated Complaint: KNEE PAIN, HEADACHE Time Seen by Provider: 11/17/17 12:17 Mode of Arrival: Ambulatory Information source: Patient Notes: 42-year-old female presented to ED for complaint of body aches runny nose cough congestion headache with her chronic knee pain. She states there is no change in the knee pain. TRAVEL OUTSIDE OF THE [place] IN LAST 30 DAYS: No - HPI Patient complains to provider of: Cough, Other - Congestion runny nose she states she sometimes feels like she has a fever but has not taken her fever Onset: Other - Couple weeks off and on Duration: Intermittent episodes Initiating Event: URI Quality of pain: Achy Severity: Moderate Pain Level: 3 Context: Smoker Cough: Nonproductive Associated symptoms: Chills, Congestion, Cough, PND, Runny nose, Sinus pain/ pressure, Sore Throat. denies: Fever Similar symptoms previously: Yes Recently seen / treated by doctor: No - Related Data Allergies/Adverse Reactions: acetaminophen [From Vicodin] Allergy (Verified 08/26/17 16:10) amoxicillin [From Augmentin] Allergy (Verified 08/26/17 16:10) amoxicillin trihydrate [From Augmentin] Allergy (Verified 08/26/17 16:10) clavulanic acid [From Augmentin] Allergy (Verified 08/26/17 16:10) esomeprazole magnesium [From Nexium] Allergy (Verified 08/26/17 16:10) hydrocodone [From Vicodin] Allergy (Verified 08/26/17 16:10) hydrocodone bitartrate [From Vicodin] Allergy (Verified 08/26/17 16:10) omeprazole [Omeprazole] Allergy (Verified 08/26/17 16:10) Potassium Clavulanate * [From Augmentin] Allergy (Verified 08/26/17 16:10) Past Medical History - General Information source: Patient - Social History Smoking Status: Current Some Day Smoker Cigarette use (# per day): Yes Smoking Education Provided: Yes - 4 minutes Frequency of alcohol use: Occasional Drug Abuse: Marijuana Lives with: Family - Brother Family History: Arthritis, CVA, DM, Hyperlipidemia, Hypertension, Malignancy, Thyroid Disfunction. denies: CAD, COPD Patient has suicidal ideation: No Patient has homicidal ideation: No - Past Medical History Cardiac Medical History: Reports: None Pulmonary Medical History: Reports: Hx Bronchitis, Hx Pneumonia EENT Medical History: Reports: None Neurological Medical History: Reports: None Endocrine Medical History: Reports: Hx Diabetes Mellitus Type 2 - boderline, Hx Hypothyroidism Renal/ Medical History: Reports: Hx Ovarian Cysts Malignancy Medical History: Reports: None GI Medical History: Reports: Hx Gastroesophageal Reflux Disease, Hx Endoscopy Musculoskeltal Medical History: Reports Hx Arthritis, Reports Hx Musculoskeletal Deformity, Reports Hx Musculoskeletal Trauma Psychiatric Medical History: Reports: Hx Depression, Hx Post Traumatic Stress Disorder Traumatic Medical History: Reports: None Infectious Medical History: Reports: None Past Surgical History: Reports: Hx Gynecologic Surgery - Laparoscopy for ovarian cysts, Hx Orthopedic Surgery, Hx Thyroid Surgery, Hx Tonsillectomy - Immunizations Immunizations up to date: Yes Hx Diphtheria, Pertussis, Tetanus Vaccination: Yes Review of Systems - Review of Systems Constitutional: Chills, Recent illness EENT: Nose congestion, Nose discharge, Sinus pressure, Sinus discharge, Throat pain Cardiovascular: No symptoms reported Respiratory: Cough Gastrointestinal: No symptoms reported Genitourinary: No symptoms reported Female Genitourinary: No symptoms reported Musculoskeletal: No symptoms reported Skin: No symptoms reported Hematologic/Lymphatic: No symptoms reported Neurological/Psychological: No symptoms reported -: Yes All other systems reviewed and negative Physical Exam - Vital signs Vitals: Temp Pulse Resp BP Pulse Ox 98.1 F 72 19 127/89 H 100 11/17/17 12:02 11/17/17 12:02 11/17/17 12:02 11/17/17 12:02 11/17/17 12:02 Interpretation: Normal - General General appearance: Appears well, Alert - HEENT Head: Normocephalic, Atraumatic Eyes: Normal Pupils: PERRL Ears: Normal External canal: Normal Tympanic membrane: Normal Sinus: Normal Nasal: Purulent discharge, Swelling Mouth/Lips: Normal Mucous membranes: Normal Pharynx: Post nasal drainage Neck: Normal - Respiratory Respiratory status: No respiratory distress Chest status: Nontender Breath sounds: Nonproductive cough Chest palpation: Normal - Cardiovascular Rhythm: Regular Heart sounds: Normal auscultation Murmur: No - Abdominal Inspection: Normal Distension: No distension Bowel sounds: Normal Tenderness: Nontender Organomegaly: No organomegaly - Back Back: Normal, Nontender - Extremities General upper extremity: Normal inspection, Nontender, Normal color, Normal ROM , Normal temperature General lower extremity: Normal inspection, Nontender, Normal color, Normal ROM , Normal temperature, Normal weight bearing. No: Liudmila's sign - Neurological Neuro grossly intact: Yes Cognition: Normal Orientation: AAOx4 Angie Coma Scale Eye Opening: Spontaneous [place] Coma Scale Verbal: Oriented [place] Coma Scale Motor: Obeys Commands Angie Coma Scale Total: 15 Speech: Normal Motor strength normal: LUE, RUE, LLE, RLE Sensory: Normal - Psychological Associated symptoms: Normal affect, Normal mood - Skin Skin Temperature: Warm Skin Moisture: Dry Skin Color: Normal Course - Re-evaluation Re-evalutation: 11/17/17 15:43 Patient treated with Claritin 10 mg, Sudafed 30 mg, Mucinex 600 mg, and ibuprofen for her cough cold congestion. After performing a Medical Screening Examination, I estimate there is LOW risk for ACUTE CORONARY SYNDROME, RESPIRATORY FAILURE, SEPSIS OR MENINGITIS, thus I consider the discharge disposition reasonable. I have reevaluated this patient multiple times and no significant life threatening changes are noted. The patient and I have discussed the diagnosis and risks, and we agree with discharging home with close follow-up. We also discussed returning to the Emergency Department immediately if new or worsening symptoms occur. We have discussed the symptoms which are most concerning (e.g., changing or worsening pain, trouble swallowing or breathing, neck stiffness, fever) that necessitate immediate return. - Vital Signs Vital signs: Temp Pulse Resp BP Pulse Ox 98.7 F 63 16 119/85 99 11/17/17 14:42 11/17/17 14:42 11/17/17 14:42 11/17/17 14:42 11/17/17 14:42 Discharge - Discharge Clinical Impression: URI (upper respiratory infection) Qualifiers: URI type: unspecified URI Qualified Code(s): J06.9 - Acute upper respiratory infection, unspecified Condition: Stable Disposition: HOME, SELF-CARE Instructions: Family Physicians / Practices Additional Instructions: UPPER RESPIRATORY ILLNESS: You have a viral infection of the respiratory passages -- a "cold." This common infection causes nasal congestion, drainage, and often sore throat and cough. It is highly contagious. The disease usually lasts about 10 to 14 days. There is no "cure" for the viral infection -- it must run its course. If there is a complication, such as bacterial infection in the nose, sinuses, middle ear, or bronchial tubes, antibiotics may be required. The antibiotics won't affect the virus. Drink plenty of fluids. A humidifier may help. An expectorant medication or decongestant may make you more comfortable. Use acetaminophen or ibuprofen for fever or aches. See the doctor if fever persists over two days, if there is any significant worsening of your symptoms, or if you simply fail to improve as expected. DECONGESTANT MEDICATION: A decongestant medicine has been prescribed. Often this medicine is combined in the same tablet with an antihistamine or expectorant. This type of medicine is helpful in treating a bad cold or sinus condition, as well as in treatment of the nasal congestion of hay fever. It is not of much benefit for lung infections. Decongestant medicines are related to stimulants. They can cause an increase in blood pressure and heart rate. Persons with heart disease and high blood pressure should not take decongestants without discussing this with the physician. If you develop palpitations, chest pain, headache, or tremors, stop the medicine and consult your physician. COUGH-SUPPRESSANT & EXPECTORANT MEDICATION: You are to use a cough medication as needed for relief of symptoms. This medicine is a combination of an expectorant (to make the mucous thinner and more easily "coughed up") and a cough suppressant (to reduce the frequency of coughing). The cough-suppressant medicine is related to narcotics. You may experience mild nausea and sleepiness. Some patients who are very sensitive to narcotics may have stomach pain from this medicine. Taking the medicine with food reduces these side effects. Do not drive or work with machinery until you know how this medicine affects you. The expectorant should have no side effects. Iodine-containing expectorants (such as organidin) should not be taken by persons with active thyroid disease unless approved by your doctor. Call the doctor if you develop shortness of breath, hives, rash, itching, lightheadedness, or severe nausea and vomiting. You will treated with Claritin 10 mg, Sudafed 30 mg, Mucinex 600 mg, and ibuprofen in the emergency room for your cough and cold symptoms. These were all [id number] medications that she can buy [id number] have to ask the pharmacist for the Sudafed. Drink plenty of fluids. USE OF ACETAMINOPHEN (Tylenol): Acetaminophen may be taken for pain relief or fever control. It's much safer than aspirin, offering a wider range of "safe" dosages. It is safe during . Some brand names are Tylenol, Panadol, Datril, Anacin 3, Tempra, and Liquiprin. Acetaminophen can be repeated every four hours. The following are maximum recommended dosages: >89 pounds or adults 650 mg to 900 mg Acetaminophen can be repeated every four hours. Maximum dose not to exceed 4000 mg a day. FOLLOW-UP CARE: If you have been referred to a physician for follow-up care, call the physician s office for an appointment as you were instructed or within the next two days. If you experience worsening or a significant change in your symptoms, notify the physician immediately or return to the Emergency Department at any time for re-evaluation. Forms: Smoking Cessation Education, Parent Work Note, Return to Work
[2017-11-17] MEDS: GUAIFENESIN 600 MG TABLET.SA PO ONE (14:37)
[2017-11-17] MEDS: PSEUDOEPHEDRINE HCL 30 MG TABLET PO ONE (14:38)
[2017-11-17] MEDS: IBUPROFEN 600 MG TABLET PO ONE (14:38)
[2017-11-17] MEDS: LORATADINE 10 MG TABLET PO ONE (14:38)
[2017-11-17 14:46] VITALS: BP 119/85
== END 2017-11-17 14:40 | disposition home or self-care (01) ==
LOC: ER 11:57
DX: J06.9 Acute upper respiratory infection, unspecified (principal); R05 Cough; R51 Headache; G89.29 Other chronic pain; M25.569 Pain in unspecified knee; R09.82 Postnasal drip; J34.89 Other specified disorders of nose and nasal sinuses; R68.83 Chills (without fever); R09.81 Nasal congestion; J02.9 Acute pharyngitis, unspecified; F17.210 Nicotine dependence, cigarettes, uncomplicated; Z71.6 Tobacco abuse counseling; Z88.5 Allergy status to narcotic agent; Z88.0 Allergy status to penicillin; Z88.8 Allergy status to other drugs, medicaments and biological substances; Z87.01 Personal history of pneumonia (recurrent)
CPT/HCPCS: 99283; 99406

== ENCOUNTER 2017-12-14 20:39 | Emergency (ER) | payer SELFPAY ==
--- NOTE | 2017-12-14 22:04 | ER Document Report ---
ED General - General Chief Complaint: Medication Refill Stated Complaint: MED REFILL Time Seen by Provider: 12/14/17 21:55 Mode of Arrival: Ambulatory Information source: Patient TRAVEL OUTSIDE OF THE [place] IN LAST 30 DAYS: No - HPI Notes: Patient presents with report that she is been out of her Synthroid and Protonix for over a week related to a family emergency that brought her out of town and she was unable to see her regular practitioner. She reports slight diminished stamina and energy and slight increase in lower extremity edema, but she denies any chest pain shortness of breath or abdominal pain. She reports occasional reflux symptoms. She denies any fever or chills. - Related Data Allergies/Adverse Reactions: clavulanic acid [From Augmentin] Allergy (Verified 12/14/17 20:40) esomeprazole magnesium [From Nexium] Allergy (Verified 12/14/17 20:40) hydrocodone [From Vicodin] Allergy (Verified 12/14/17 20:40) hydrocodone bitartrate [From Vicodin] Allergy (Verified 12/14/17 20:40) omeprazole [Omeprazole] Allergy (Verified 12/14/17 20:40) Potassium Clavulanate * [From Augmentin] Allergy (Verified 12/14/17 20:40) Past Medical History - General Information source: Patient - Social History Smoking Status: Current Every Day Smoker Chew tobacco use (# tins/day): No Frequency of alcohol use: daily Drug Abuse: Marijuana Lives with: Family Family History: Arthritis, CVA, DM, Hyperlipidemia, Hypertension, Malignancy, Thyroid Disfunction. denies: CAD, COPD Patient has suicidal ideation: No Patient has homicidal ideation: No Pulmonary Medical History: Reports: Hx Bronchitis, Hx Pneumonia Endocrine Medical History: Reports: Hx Diabetes Mellitus Type 2 - boderline, Hx Hypothyroidism Renal/ Medical History: Reports: Hx Ovarian Cysts. Denies: Hx Peritoneal Dialysis GI Medical History: Reports: Hx Gastroesophageal Reflux Disease, Hx Endoscopy Musculoskeltal Medical History: Reports Hx Arthritis, Reports Hx Musculoskeletal Deformity, Reports Hx Musculoskeletal Trauma Psychiatric Medical History: Reports: Hx Depression, Hx Post Traumatic Stress Disorder Denies: Hx Attention Deficit Hyperactivity Disorder, Hx Bipolar Disorder, Hx Schizophrenia Past Surgical History: Reports: Hx Gynecologic Surgery - Laparoscopy for ovarian cysts, Hx Orthopedic Surgery - tiki knee scopes, Hx Thyroid Surgery - total removed, Hx Tonsillectomy, Hx Tubal Ligation. Denies: Hx Abdominal Surgery, Hx Appendectomy, Hx Bowel Surgery, Hx Breast Surgery, Hx Cardiac Catheterization, Hx Cardiac Surgery, Hx Section, Hx Cholecystectomy, Hx Genitourinary Surgery, Hx Hysterectomy, Hx Kidney (Renal Surgery), Hx Mastectomy, Hx Neurologic Surgery, Hx Nose Surgery, Hx Open Heart Surgery, Hx Oral Surgery, Hx Pancreatic Surgery, Hx Pituitary Surgery, Hx Rectal Surgery, Hx Urinary Tract Surgery, Hx Vascular Surgery - Immunizations Immunizations up to date: Yes Hx Diphtheria, Pertussis, Tetanus Vaccination: Yes Review of Systems - Review of Systems Notes: REVIEW OF SYSTEMS: CONSTITUTIONAL : Denies fever, chills, or sweats. Denies recent illness. EENT: Denies eye, ear, throat, or mouth pain or symptoms. Denies nasal or sinus congestion or discharge. Denies throat, tongue, or mouth swelling or difficulty swallowing. CARDIOVASCULAR: Denies chest pain. Denies palpitations or racing or irregular heart beat. RESPIRATORY: Denies cough, cold, or chest congestion. Denies shortness of breath, difficulty breathing, or wheezing. GASTROINTESTINAL: Denies abdominal pain or distention. Denies nausea, vomiting , or diarrhea. Denies blood in vomitus, stools, or per rectum. Denies black, tarry stools. Denies constipation. GENITOURINARY: Denies difficulty urinating, painful urination, burning, frequency, blood in urine, or discharge. FEMALE GENITOURINARY: Denies vaginal bleeding, heavy or abnormal periods, irregular periods. Denies vaginal discharge or odor. MUSCULOSKELETAL: Denies back or neck pain or stiffness. Denies joint pain or swelling. SKIN: Denies rash, lesions or sores. HEMATOLOGIC : Denies easy bruising or bleeding. LYMPHATIC: Denies swollen, enlarged glands. NEUROLOGICAL: Denies confusion or altered mental status. Denies passing out or loss of consciousness. Denies dizziness or lightheadedness. Denies headache. Denies weakness or paralysis or loss of use of either side. Denies problems with gait or speech. Denies sensory loss, numbness, or tingling. Denies seizures. PSYCHIATRIC: Denies anxiety or stress. Denies depression, suicidal ideation, or homicidal ideation. ALL OTHER SYSTEMS REVIEWED AND NEGATIVE. Dictation was performed using [employer] voice recognition software Physical Exam - Vital signs Vitals: Temp Pulse Resp BP Pulse Ox 97.9 F 54 L 16 140/96 H 97 12/14/17 20:45 12/14/17 20:45 12/14/17 20:45 12/14/17 20:45 12/14/17 20:45 - Notes Notes: PHYSICAL EXAMINATION: GENERAL: Well-appearing, well-nourished and in no acute distress. HEAD: Atraumatic, normocephalic. EYES: Pupils equal round and reactive to light, extraocular movements intact, conjunctiva are normal. ENT: Nares patent, oropharynx clear without exudates. Moist mucous membranes. NECK: Normal range of motion, supple without lymphadenopathy LUNGS: Breath sounds clear to auscultation bilaterally and equal. No wheezes rales or rhonchi. HEART: Regular rate and rhythm without murmurs ABDOMEN: Soft, nontender, nondistended abdomen. No guarding, no rebound. No masses appreciated. Obese. Female : deferred Musculoskeletal: Normal range of motion. No cyanosis. Trace bilateral lower extremity edema. NEUROLOGICAL: Cranial nerves grossly intact. Normal speech, normal gait. Normal sensory, motor exams PSYCH: Normal mood, normal affect. SKIN: Warm, Dry, normal turgor, no rashes or lesions noted. Course - Re-evaluation Re-evalutation: 12/14/17 22:04 Refills given of Synthroid and Protonix. Patient states she will follow-up with her regular practitioner as soon as possible. - Vital Signs Vital signs: Temp Pulse Resp BP Pulse Ox 97.9 F 54 L 16 140/96 H 97 12/14/17 20:45 12/14/17 20:45 12/14/17 20:45 12/14/17 20:45 12/14/17 20:45 Discharge - Discharge Clinical Impression: GERD (gastroesophageal reflux disease) Qualifiers: Esophagitis presence: esophagitis presence not specified Qualified Code(s): K21.9 - Gastro-esophageal reflux disease without esophagitis Hypothyroidism Qualifiers: Hypothyroidism type: unspecified Qualified Code(s): E03.9 - Hypothyroidism, unspecified Condition: Stable Disposition: HOME, SELF-CARE Instructions: Hypothyroidism ([facility]), Reflux Disease (GERD) ([facility]) Prescriptions: Levothyroxine Sodium [Synthroid] 137 mcg PO DAILY #30 tablet Pantoprazole Sodium [Protonix] 40 mg PO BID #60 tablet.dr Referrals: CHAD DELGADO, LEAF TIER-C [Primary Care Provider] - Follow up as needed
[2017-12-14 22:49] VITALS: BP 132/92
== END 2017-12-14 22:46 | disposition home or self-care (01) ==
LOC: ER 20:39
DX: Z76.0 Encounter for issue of repeat prescription (principal); K21.9 Gastro-esophageal reflux disease without esophagitis; T47.1X6A Underdosing of other antacids and anti-gastric-secretion drugs, initial encounter; E89.0 Postprocedural hypothyroidism; T38.1X6A Underdosing of thyroid hormones and substitutes, initial encounter; Z91.128 Patient's intentional underdosing of medication regimen for other reason; Z91.14 Patient's other noncompliance with medication regimen; R60.0 Localized edema; F17.200 Nicotine dependence, unspecified, uncomplicated; Z88.0 Allergy status to penicillin; Z88.8 Allergy status to other drugs, medicaments and biological substances; Z88.5 Allergy status to narcotic agent
CPT/HCPCS: 99281

== ENCOUNTER 2018-02-10 10:28 | Emergency (ER) | payer OTHER ==
--- NOTE | 2018-02-10 11:50 | ER Document Report ---
ED General - General Chief Complaint: Diarrhea Stated Complaint: DIARRHEA Time Seen by Provider: 02/10/18 11:37 Mode of Arrival: Ambulatory Information source: Patient Notes: 42-year-old female [place] presents with complaints of 2 episodes of diarrhea. Patient states she has been feeling lightheaded dizzy intermittently nauseous for the past 2 days and had a diarrhea today her coworker has had similar complaints. Patient denies any well water recent antibiotic use TRAVEL OUTSIDE OF THE [place] IN LAST 30 DAYS: No - HPI Onset: Yesterday Onset/Duration: Waxing and waning Quality of pain: Cramping Severity: Mild Pain Level: 1 Associated symptoms: Diarrhea Exacerbated by: Denies Relieved by: Denies Similar symptoms previously: No Recently seen / treated by doctor: No - Related Data Allergies/Adverse Reactions: clavulanic acid [From Augmentin] Allergy (Verified 02/10/18 10:29) esomeprazole magnesium [From Nexium] Allergy (Verified 02/10/18 10:29) hydrocodone [From Vicodin] Allergy (Verified 02/10/18 10:29) hydrocodone bitartrate [From Vicodin] Allergy (Verified 02/10/18 10:29) omeprazole [Omeprazole] Allergy (Verified 02/10/18 10:29) Potassium Clavulanate * [From Augmentin] Allergy (Verified 02/10/18 10:29) Past Medical History - Social History Smoking Status: Never Smoker Cigarette use (# per day): No Chew tobacco use (# tins/day): No Smoking Education Provided: No Family History: Arthritis, CVA, DM, Hyperlipidemia, Hypertension, Malignancy, Thyroid Disfunction. denies: CAD, COPD Pulmonary Medical History: Reports: Hx Bronchitis, Hx Pneumonia Endocrine Medical History: Reports: Hx Diabetes Mellitus Type 2 - boderline, Hx Hypothyroidism Renal/ Medical History: Reports: Hx Ovarian Cysts. Denies: Hx Peritoneal Dialysis GI Medical History: Reports: Hx Gastroesophageal Reflux Disease, Hx Endoscopy Musculoskeletal Medical History: Reports Hx Arthritis, Reports Hx Musculoskeletal Deformity, Reports Hx Musculoskeletal Trauma Psychiatric Medical History: Reports: Hx Depression, Hx Post Traumatic Stress Disorder Denies: Hx Attention Deficit Hyperactivity Disorder, Hx Bipolar Disorder, Hx Schizophrenia Past Surgical History: Reports: Hx Gynecologic Surgery - Laparoscopy for ovarian cysts, Hx Orthopedic Surgery - tiki knee scopes, Hx Thyroid Surgery - total removed, Hx Tonsillectomy, Hx Tubal Ligation. Denies: Hx Abdominal Surgery, Hx Appendectomy, Hx Bowel Surgery, Hx Breast Surgery, Hx Cardiac Catheterization, Hx Cardiac Surgery, Hx Section, Hx Cholecystectomy, Hx Genitourinary Surgery, Hx Hysterectomy, Hx Kidney (Renal Surgery), Hx Mastectomy, Hx Neurologic Surgery, Hx Nose Surgery, Hx Open Heart Surgery, Hx Oral Surgery, Hx Pancreatic Surgery, Hx Pituitary Surgery, Hx Rectal Surgery, Hx Urinary Tract Surgery, Hx Vascular Surgery - Immunizations Immunizations up to date: Yes Hx Diphtheria, Pertussis, Tetanus Vaccination: Yes Review of Systems - Review of Systems Notes: REVIEW OF SYSTEMS: CONSTITUTIONAL : Admits to chills EENT: Denies eye, ear, throat, or mouth pain or symptoms. Denies nasal or sinus congestion or discharge. Denies throat, tongue, or mouth swelling or difficulty swallowing. CARDIOVASCULAR: Denies chest pain. Denies palpitations or racing or irregular heart beat. Denies ankle edema. RESPIRATORY: Denies cough, cold, or chest congestion. Denies shortness of breath, difficulty breathing, or wheezing. GASTROINTESTINAL: Admits to diarrhea cramping GENITOURINARY: Denies difficulty urinating, painful urination, burning, frequency, blood in urine, or discharge. FEMALE GENITOURINARY: Denies vaginal bleeding, heavy or abnormal periods, irregular periods. Denies vaginal discharge or odor. MUSCULOSKELETAL: Denies back or neck pain or stiffness. Denies joint pain or swelling. SKIN: Denies rash, lesions or sores. HEMATOLOGIC : Denies easy bruising or bleeding. LYMPHATIC: Denies swollen, enlarged glands. NEUROLOGICAL: Denies confusion or altered mental status. Denies passing out or loss of consciousness. Denies dizziness or lightheadedness. Denies headache. Denies weakness or paralysis or loss of use of either side. Denies problems with gait or speech. Denies sensory loss, numbness, or tingling. Denies seizures. PSYCHIATRIC: Denies anxiety or stress. Denies depression, suicidal ideation, or homicidal ideation. ALL OTHER SYSTEMS REVIEWED AND NEGATIVE. PHYSICAL EXAMINATION: GENERAL: Well-appearing, well-nourished and in no acute distress. HEAD: Atraumatic, normocephalic. EYES: Pupils equal round and reactive to light, extraocular movements intact, conjunctiva are normal. ENT: Nares patent, oropharynx clear without exudates. Moist mucous membranes. NECK: Normal range of motion, supple without lymphadenopathy LUNGS: Breath sounds clear to auscultation bilaterally and equal. No wheezes rales or rhonchi. HEART: Regular rate and rhythm without murmurs ABDOMEN: Soft, nontender, nondistended abdomen. No guarding, no rebound. No masses appreciated. Female : deferred Musculoskeletal: Normal range of motion, no pitting or edema. No cyanosis. NEUROLOGICAL: Cranial nerves grossly intact. Normal speech, normal gait. Normal sensory, motor exams PSYCH: Normal mood, normal affect. SKIN: Warm, Dry, normal turgor, no rashes or lesions noted. Dictation was performed using [employer] voice recognition software Physical Exam - Vital signs Vitals: Temp Pulse Resp BP Pulse Ox 98.7 F 56 L 18 138/84 H 100 02/10/18 11:59 02/10/18 11:59 02/10/18 11:59 02/10/18 11:59 02/10/18 11:59 Course - Re-evaluation Re-evalutation: 02/10/18 12:40 Patient denies any well water use, denies any recent antibiotic use, as, denies any C. difficile exposure however does have exposure of sick contact I believe this is a viral gastroenteritis patient has been otherwise well-appearing stable will treat symptomatically follow-up After performing a Medical Screening Examination, I estimate there is LOW risk for ACUTE APPENDICITIS, BOWEL OBSTRUCTION, ACUTE CHOLECYSTITIS, PERFORATED DIVERTICULITIS, INCARCERATED HERNIA, PANCREATITIS, PELVIC INFLAMMATORY DISEASE, PERFORATED ULCER, ECTOPIC , or TUBO-OVARIAN ABSCESS, thus I consider the discharge disposition reasonable. Also, there is no evidence or peritonitis , sepsis, or toxicity. I have reevaluated this patient multiple times and no significant life threatening changes are noted. The patient and I have discussed the diagnosis and risks, and we agree with discharging home with close follow-up with the understanding that symptoms and presentations can change. We also discussed returning to the Emergency Department immediately if new or worsening symptoms occur. We have discussed the symptoms which are most concerning (e.g., bloody stool, fever, changing or worsening pain, vomiting) that necessitate immediate return. - Vital Signs Vital signs: Temp Pulse Resp BP Pulse Ox 98.7 F 56 L 18 138/84 H 100 02/10/18 11:59 02/10/18 11:59 02/10/18 11:59 02/10/18 11:59 02/10/18 11:59 Discharge - Discharge Clinical Impression: Diarrhea Qualifiers: Diarrhea type: unspecified type Qualified Code(s): R19.7 - Diarrhea, unspecified Condition: Stable Disposition: HOME, SELF-CARE Instructions: Diarrhea, Nonspecific ([facility]) Prescriptions: Dicyclomine HCl [Bentyl 20 mg Tablet] 20 mg PO QID #40 tablet Metoclopramide HCl [Reglan 10 mg Tablet] 1 - 2 tab PO Q6 #25 tablet Forms: Return to Work Referrals: CHAD DELGADO, [employer] SPECIALIST[facility] [Primary Care Provider] - Follow up as needed
[2018-02-10 12:00] VITALS: BP 138/84
== END 2018-02-10 12:00 | disposition home or self-care (01) ==
LOC: ER 10:28
DX: R19.7 Diarrhea, unspecified (principal); R42 Dizziness and giddiness; R11.0 Nausea; R68.83 Chills (without fever); Z88.0 Allergy status to penicillin; Z88.8 Allergy status to other drugs, medicaments and biological substances; Z88.5 Allergy status to narcotic agent
CPT/HCPCS: 99283